=== PATIENT | female | born 1995 | race American Indian/Alaskan Native ===

== ENCOUNTER 2018-11-18 23:06 | Emergency (ER) | payer BC ==
--- NOTE | 2018-11-19 01:27 | Emergency Department Report ---
ED Animal Bite HPI - General Chief Complaint: Animal Bite Stated Complaint: BITE BY DOG Time Seen by Provider: 11/19/18 01:04 Source: patient Mode of arrival: Ambulatory Limitations: No Limitations - History of Present Illness Initial Comments: Patient is a 23-year-old female who presents to the emergency room with complaint of a dog bite that occurred tonight around 9:30 PM. She states it was a medium-sized dog. States the bite was to the right forearm. She states she was at a friend's house and the friend states that the dog's shots are up-to-d ate. She denies any pain in the arm. She is freely moving the right arm. Denies any past medical history, allergies medications. - Related Data Previous Rx's Medication Instructions Recorded Last Taken Type Amoxicillin/K Clav Tab [Augmentin 1 tab PO BID 5 Days #10 tab 11/19/18 Unknown Rx 875 mg] Allergies Allergy/AdvReac Type Severity Reaction Status Date / Time No Known Allergies Allergy Unverified 11/18/18 23:40 ED Review of Systems ROS: Stated complaint: BITE BY DOG Other details as noted in HPI Comment: All other systems reviewed and negative ED Past Medical Hx - Past Medical History Previous Medical History?: No - Surgical History Past Surgical History?: No - Social History Smoking Status: Never Smoker Substance Use Type: None - Medications Home Medications: Home Medications Medication Instructions Recorded Confirmed Last Taken Type Amoxicillin/K Clav Tab [Augmentin 1 tab PO BID 5 Days #10 tab 11/19/18 Unknown Rx 875 mg] ED Physical Exam - General Limitations: No Limitations General appearance: alert, in no apparent distress - Head Head exam: Present: atraumatic, normocephalic - Eye Eye exam: Present: normal appearance, PERRL - ENT ENT exam: Present: mucous membranes moist - Neurological Exam Neurological exam: Present: alert, oriented X3 - Psychiatric Psychiatric exam: Present: normal affect, normal mood - Skin Skin exam: Present: warm, dry, other (3 very small abrasions to the right forearm, no laceration, no surrounding erythema, appears clean, dry, intact) ED Course Vital Signs 11/19/18 11/19/18 00:05 01:45 Temperature 98 F 98.1 F Pulse Rate 70 62 Respiratory 18 16 Rate Blood Pressure 126/86 Blood Pressure 141/80 [Left] O2 Sat by Pulse 100 100 Oximetry - Reevaluation(s) Reevaluation #1: 11/20/18 12:22 Patient is a 23-year-old female who presents to the emergency room with complaint of a dog bite that occurred tonight around 9:30 PM. She states it was a medium-sized dog. States the bite was to the right forearm. She states she was at a friend's house and the friend states that the dog's shots are up-to-date. She denies any pain in the arm. She is freely moving the right arm. Denies any past medical history, allergies medications. on exam: 3 very small abrasions to the right forearm, no laceration, no surrounding erythema, appears clean, dry, intact. abrasions cleaned with betadine while in the ED. pt given prescription for augmentin. advised to please keep area clean and dry. May wash with soap and water and immediately dry. do not get in hot tub, pool, or immerse in water. Take medication as prescribed. Return to the emergency room for any new or worsening symptoms. follow up with a primary care doctor the next 2-3 days. Critical care attestation.: If time is entered above; I have spent that time in minutes in the direct care of this critically ill patient, excluding procedure time. ED Disposition Clinical Impression: Animal bite of right forearm Qualifiers: Encounter type: initial encounter Qualified Code(s): S51.851A - Open bite of right forearm, initial encounter Disposition: DC-01 TO HOME OR SELFCARE Is pt being admited?: No Does the pt Need Aspirin: No Condition: Stable Instructions: Animal Bite (ED) Additional Instructions: Please keep area clean and dry. May wash with soap and water and immediately dry. do not get in hot tub, pool, or immerse in water. Take medication as prescribed. Return to the emergency room for any new or worsening symptoms. follow up with a primary care doctor the next 2-3 days. Prescriptions: Amoxicillin/K Clav Tab [Augmentin 875 mg] 1 tab PO BID 5 Days #10 tab Referrals: [facility] [Outside] - 2-3 Days [facility] [Provider Group] - 2-3 Days [facility] [Outside] - 2-3 Days Time of Disposition: 01:26 Print Language: [place]
[2018-11-19 01:46] VITALS: BP 141/80
== END 2018-11-19 01:45 | disposition home or self-care (01) ==
LOC: ED 23:06
DX: S51.851A Open bite of right forearm, initial encounter (principal); W54.0XXA Bitten by dog, initial encounter; Y93.89 Activity, other specified; Y92.098 Other place in other non-institutional residence as the place of occurrence of the external cause; Y99.8 Other external cause status
CPT/HCPCS: 99282